=== PATIENT | female | born 1960 | race Caucasian/White ===

== ENCOUNTER 2020-12-15 15:25 | Emergency (ER) | payer OTHER, MEDICAID ==
[~2020-12-15] VITALS: Ht 157.5 cm; Wt 77.1 kg
[~2020-12-15 15:25] MED LIST: B12INJ; BENAZEPRIL 10 M10 MG PO; BENAZEPRIL HCL20 MG; CALCIUM 600 +1 EAC1 PO; CALTRATE PLUS1 EACH; CARAFATE 1 GM TA1 G1 PO; CLONAZEPAM 0.50.5 M1 PO; DOXYCYCLINE 10100 MG PO; FENTANYL PA50 MCG/HR TP; LEXAPRO20 MG; LOTENSIN20 MG PO; LUNESTA1 MG PO; LUNESTA2 MG PO; MIRALAX17 GM PO; Milk Thistle PO; NORCO 10-325 T1 EACH PO; PRILOSEC 20 MG20 MG PO; Resveratrol PO; SENOKOT-S1 TA1 PO; VITAMIN D1000 UNI1; VITAMIN D350000 UNIT PO
[2020-12-15] MEDS ORDERED: BENAZEPRIL HCL5 MG (15:35)
[2020-12-15] MEDS ORDERED: CLONAZEPAM 0.50.5 M1 PO (15:35)
[2020-12-15] MEDS ORDERED: DURAGESIC1 EAC2 (15:36)
[2020-12-15] MEDS ORDERED: LINZESS72 MCG (15:36)
[2020-12-15] MEDS ORDERED: PERCOCET 10-321 EAC1 PO (15:37)
[2020-12-15 15:46] VITALS: BP 162/83
--- NOTE | 2020-12-16 12:19 | EKG ---
[place] [address] ELECTROCARDIOGRAM REPORT Name: BILLIE SANDS Room: [facility]#: [id number] Admission: 12/15/20 Attend Phys: Discharge: 12/15/20 Date of : 56 Date of Service: 12/15/20 1532 Report #: [id number] THIS REPORT FOR: //name// [facility] ED Test Date: 2020-12-15 Test Time: 15:32:22 Pat Name: BILLIE SANDS Department: Room: Gender: F Vice President [employer]: JEAN : 1960 Requested By: Lamont Peñaloza Order Number: [id number] Kareen MD: Elliot Vides Measurements Intervals [place] Rate: 81 P: 2 RI: 132 QRS: -8 QRSD: 99 T: 26 QT: 373 QTc: 433 Interpretive Statements Sinus rhythm Low voltage, precordial leads Baseline wander in lead(s) II,III,aVF,V6 Compared to ECG 04/09/2014 14:10:11 Low QRS voltage now present Electronically Signed On 12-16-2020 12:19:10 CDT by Elliot Vides [email or web address] <ELECTRONICALLY SIGNED> By: Elliot Vides MD, FAC 12/16/20 1219 1532 1532 Elliot Vides MD, FAC /EPI
== END 2020-12-15 15:47 | disposition left against medical advice (07) ==
LOC: M.ERS 15:25
DX: I10 Essential (primary) hypertension (principal); Z88.5 Allergy status to narcotic agent; Z79.899 Other long term (current) drug therapy; Z98.890 Other specified postprocedural states